=== PATIENT | female | born 1980 | race Caucasian/White ===

== ENCOUNTER 2018-01-21 17:57 | Emergency (ER) | payer OTHER ==
[~2018-01-21] VITALS: Ht 172.7 cm; Wt 56.2 kg
[2018-01-21] MEDS ORDERED: CYMBALTA30 MG PO (18:25)
[2018-01-21] MEDS ORDERED: CARAFATE 1 GM TA1 G1 PO (18:25)
[2018-01-21] MEDS ORDERED: PROTONIX 20 MG20 M1 PO (18:25)
[2018-01-21] MEDS ORDERED: SYNTHROID300 MCG PO (18:26)
[2018-01-21] MEDS ORDERED: OXTELLAR XR150 MG PO (18:26)
[2018-01-21] MEDS ORDERED: TYLENOL325 M1 PO (18:27)
[2018-01-21] MEDS ORDERED: ALEVE220 MG PO (18:27)
[2018-01-21] MEDS ORDERED: MELATONIN5 M1 PO (18:27)
[2018-01-21 18:40] LABS: ABSOLUTE NEUTROPHILS 2.3 thou/uL (1.4-8.2); BASOPHILS 0.8 % (0.0-2.0); EOSINOPHILS 0.7 % (0.0-3.0); HEMATOCRIT 40.9 % (37.0-47.0); HEMOGLOBIN 14.6 gm/dL (12.0-15.0); LYMPHOCYTES 31.9 % (24.0-44.0); MCH 31.2 pg (26.0-34.0); MCHC 35.7 g/dL (28.0-37.0); MCV 87.3 fL (80.0-100.0); MONOCYTES 8.8 % (1.0-8.0); PLATELET COUNT 235 thou/uL (150-400); POLYS 57.8 % (36.0-66.0); RBC 4.69 mil/uL (4.20-5.00); RDW 11.5 % (10.5-14.5); WBC 3.9 thou/uL (4.0-11.0)
[2018-01-21 18:48] LABS: CALCIUM 9.5 mg/dL (8.5-10.1); CREATININE 0.6 mg/dL (0.6-1.0); POTASSIUM 3.6 mmol/L (3.5-5.1)
[2018-01-21 18:52] LABS: ALBUMIN 4.5 g/dL (3.4-5.0); TOTAL BILIRUBIN 0.4 mg/dL (<0.1-1.0); TOTAL PROTEIN 7.9 g/dL (6.4-8.2)
[2018-01-21] MEDS ORDERED: TORADOL 10 MG T10 MG PO (20:15)
[2018-01-21 20:31] VITALS: BP 107/58
== END 2018-01-21 20:32 | disposition home or self-care (01) ==
LOC: ER 17:57
PROVIDERS: Student in an Organized Health Care Education/Training Program
DX: R10.13 Epigastric pain (principal); R10.11 Right upper quadrant pain; F31.9 Bipolar disorder, unspecified; Z85.07 Personal history of malignant neoplasm of pancreas; Z87.891 Personal history of nicotine dependence; Z88.5 Allergy status to narcotic agent; Z91.018 Allergy to other foods; Z90.49 Acquired absence of other specified parts of digestive tract; Z90.711 Acquired absence of uterus with remaining cervical stump; Z85.850 Personal history of malignant neoplasm of thyroid

== ENCOUNTER 2018-05-16 13:22 | Emergency (ER) | payer OTHER ==
[~2018-05-16] VITALS: Ht 172.7 cm; Wt 54.9 kg
[~2018-05-16 13:22] MED LIST: ALEVE220 MG PO; CARAFATE 1 GM TA1 G1 PO; CYMBALTA30 MG PO; MELATONIN5 M1 PO; OXTELLAR XR150 MG PO; PROTONIX 20 MG20 M1 PO; SYNTHROID300 MCG PO; TORADOL 10 MG T10 MG PO; TYLENOL325 M1 PO
[2018-05-16 13:50] LABS: ABSOLUTE NEUTROPHILS 3.3 thou/uL (1.4-8.2); BASOPHILS 0.7 % (0.0-2.0); EOSINOPHILS 0.6 % (0.0-3.0); HEMATOCRIT 43.9 % (37.0-47.0); HEMOGLOBIN 14.9 gm/dL (12.0-15.0); LYMPHOCYTES 34.7 % (24.0-44.0); MCH 29.5 pg (26.0-34.0); MCHC 33.9 g/dL (28.0-37.0); MONOCYTES 5.8 % (1.0-8.0); PLATELET COUNT 307 thou/uL (150-400); POLYS 58.2 % (36.0-66.0); RBC 5.04 mil/uL (4.20-5.00); RDW 13.1 % (10.5-14.5); WBC 5.7 thou/uL (4.0-11.0)
[2018-05-16 13:52] LABS: URINE BILIRUBIN NEGATIVE (Negative); URINE BLOOD NEGATIVE (Negative); URINE CLARITY SL CLOUDY; URINE COLOR YELLOW; URINE GLUCOSE-RANDOM* NEGATIVE (Negative); URINE KETONES TRACE (Negative); URINE LEUKOCYTES-REFLEX NEGATIVE (Negative); URINE NITRITE-REFLEX NEGATIVE (Negative); URINE PROTEIN (DIPSTICK) NEGATIVE (Negative); URINE SPECIFIC GRAVITY 1.015 (1.005-1.035); URINE UROBILINOGEN 0.2 E.U./dl (0.2-1.0)
[2018-05-16 13:59] LABS: CALCIUM 9.4 mg/dL (8.5-10.1); CREATININE 0.7 mg/dL (0.6-1.0)
[2018-05-16 14:05] LABS: ALBUMIN 4.8 g/dL (3.4-5.0); TOTAL BILIRUBIN 0.3 mg/dL (<0.1-1.0); TOTAL PROTEIN 8.1 g/dL (6.4-8.2)
[2018-05-16] MEDS ORDERED: TRILEPTAL300 MG PO (14:06)
[2018-05-16] MEDS ORDERED: AMBIEN5 MG PO (14:07)
[2018-05-16] MEDS ORDERED: BACLOFEN 10MG T10 MG PO (14:08)
[2018-05-16 14:20] LABS: PROTIME 10.2 Seconds (9.3-11.4)
[2018-05-16] MEDS ORDERED: REGLAN 10 MG TA10 MG PO (16:00)
[2018-05-16] MEDS ORDERED: TORADOL 10 MG T10 MG PO (16:00)
[2018-05-16 16:05] VITALS: BP 112/76
--- NOTE | 2018-05-16 17:28 | EKG ---
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: MIRIAM : 1980 Requested By: Mak Russell Order Number: [id number] MD: Jean Adrian Measurements Intervals [place] Rate: 87 P: 61 DC: 133 QRS: 50 QRSD: 98 T: 67 QT: 364 QTc: 438 Interpretive Statements Sinus rhythm Normal tracing No previous ECG available for comparison Electronically Signed On 05-16-2018 17:28:19 CDT by Jean Adrian [email or web address] ��������������������������������������������� <ELECTRONICALLY SIGNED> ���������������������������������������� By: Jean Adrian MD, [facility] ��������������������������������������������� 05/16/18 1728 1406 1406 Jean Adrian MD, FACC /EPI
== END 2018-05-16 16:12 | disposition home or self-care (01) ==
LOC: ER 13:22
PROVIDERS: Physician Assistant
DX: K31.84 Gastroparesis (principal); R55 Syncope and collapse; F31.9 Bipolar disorder, unspecified; Z87.891 Personal history of nicotine dependence; Z88.6 Allergy status to analgesic agent; Z91.018 Allergy to other foods; Z85.850 Personal history of malignant neoplasm of thyroid; Z90.711 Acquired absence of uterus with remaining cervical stump

== ENCOUNTER 2018-06-13 16:52 | Emergency (ER) | payer OTHER ==
[~2018-06-13] VITALS: Ht 172.7 cm; Wt 56.7 kg
[~2018-06-13 16:52] MED LIST changes: +AMBIEN5 MG PO; +BACLOFEN 10MG T10 MG PO; +REGLAN 10 MG TA10 MG PO; +TRILEPTAL300 MG PO
[2018-06-13 17:49] LABS: ABSOLUTE NEUTROPHILS 2.2 thou/uL (1.4-8.2); BASOPHILS 0.7 % (0.0-2.0); EOSINOPHILS 0.4 % (0.0-3.0); HEMOGLOBIN 12.6 gm/dL (12.0-15.0); LYMPHOCYTES 40.1 % (24.0-44.0); MCH 29.2 pg (26.0-34.0); MCHC 34.2 g/dL (28.0-37.0); MCV 85.5 fL (80.0-100.0); MONOCYTES 8.5 % (1.0-8.0); PLATELET COUNT 206 thou/uL (150-400); POLYS 50.3 % (36.0-66.0); RBC 4.33 mil/uL (4.20-5.00); RDW 12.6 % (10.5-14.5); WBC 4.3 thou/uL (4.0-11.0)
[2018-06-13 17:55] LABS: CALCIUM 8.9 mg/dL (8.5-10.1); CREATININE 0.6 mg/dL (0.6-1.0); POTASSIUM 3.7 mmol/L (3.5-5.1)
[2018-06-13 18:01] LABS: TOTAL BILIRUBIN 0.3 mg/dL (<0.1-1.0); TOTAL PROTEIN 6.5 g/dL (6.4-8.2)
[2018-06-13] MEDS ORDERED: MIRALAX17 G1 PO (18:42)
[2018-06-13] MEDS ORDERED: COLACE100 MG PO (18:42)
[2018-06-13] MEDS ORDERED: AMITRIPTYLINE H25 M2 PO (18:43)
[2018-06-13 20:44] LABS: URINE BILIRUBIN NEGATIVE (Negative); URINE BLOOD NEGATIVE (Negative); URINE CLARITY SL CLOUDY; URINE COLOR YELLOW; URINE GLUCOSE-RANDOM* NEGATIVE (Negative); URINE KETONES TRACE (Negative); URINE LEUKOCYTES-REFLEX NEGATIVE (Negative); URINE NITRITE-REFLEX NEGATIVE (Negative); URINE PROTEIN (DIPSTICK) NEGATIVE (Negative); URINE UROBILINOGEN 0.2 E.U./dl (0.2-1.0)
[2018-06-13] MEDS ORDERED: NORCO 5-325 TA1 EACH PO (21:50)
[2018-06-13 21:56] VITALS: BP 113/56
== END 2018-06-13 22:03 | disposition home or self-care (01) ==
LOC: ER 16:52
PROVIDERS: Physician Assistant
DX: K31.84 Gastroparesis (principal); Z85.850 Personal history of malignant neoplasm of thyroid; F31.9 Bipolar disorder, unspecified; Z90.49 Acquired absence of other specified parts of digestive tract; Z90.710 Acquired absence of both cervix and uterus; Z87.891 Personal history of nicotine dependence; Z88.5 Allergy status to narcotic agent; Z88.8 Allergy status to other drugs, medicaments and biological substances

== ENCOUNTER 2018-11-05 14:02 | Inpatient (IN) | payer OTHER ==
[~2018-11-05] VITALS: Ht 172.7 cm; Wt 60.3 kg
[~2018-11-05 14:02] MED LIST changes: +AMITRIPTYLINE H25 M2 PO; +COLACE100 MG PO; +MIRALAX17 G1 PO; +NORCO 5-325 TA1 EACH PO
[2018-11-05 14:07] VITALS: BP 136/87
[2018-11-05 14:40] LABS: BASOPHILS 0.2 % (0.0-2.0); EOSINOPHILS 0.4 % (0.0-3.0); HEMATOCRIT 38.6 % (37.0-47.0); HEMOGLOBIN 13.4 gm/dL (12.0-15.0); LYMPHOCYTES 35.4 % (24.0-44.0); MCH 29.5 pg (26.0-34.0); MCHC 34.5 g/dL (28.0-37.0); MCV 85.3 fL (80.0-100.0); PLATELET COUNT 243 thou/uL (150-400); RBC 4.53 mil/uL (4.20-5.00); RDW 12.9 % (10.5-14.5); WBC 5.3 thou/uL (4.0-11.0)
[2018-11-05 14:44] LABS: ANION GAP 9 mmol/L (7-16); BUN 12 mg/dL (7-18); CALCIUM 9.1 mg/dL (8.5-10.1); CHLORIDE 104 mmol/L (98-107); CO2 27 mmol/L (21-32); CREATININE 0.6 mg/dL (0.6-1.0); GLUCOSE 112 mg/dL (74-106); POTASSIUM 3.6 mmol/L (3.5-5.1); SODIUM 140 mmol/L (136-145)
[2018-11-05 14:51] LABS: ALBUMIN 4.3 g/dL (3.4-5.0); DIRECT BILIRUBIN < 0.1 mg/dL (<0.1-0.3); LIPASE 211 U/L (73-393); SGOT 11 U/L (15-37); SGPT 16 U/L (30-65); TOTAL BILIRUBIN 0.3 mg/dL (<0.1-1.0); TOTAL PROTEIN 7.3 g/dL (6.4-8.2)
[2018-11-05 16:54] VITALS: BP 132/75
[2018-11-05 17:20] LABS: AMP/METHAMP Negative (Negative); BARBITURATES Negative (Negative); BENZODIAZEPINES Negative (Negative); COCAINE Negative (Negative); METHADONE Negative (Negative); OPIATES Negative (Negative); PCP Negative (Negative)
[2018-11-05 17:21] VITALS: BP 1117/75
[2018-11-05 17:28] VITALS: BP 1117/75
[2018-11-05 17:52] VITALS: BP 108/57
[2018-11-05] MEDS ORDERED: MELATONIN5 M1 PO (18:36)
--- NOTE | 2018-11-05 18:59 | NUR ---
Assumed care of pt 0700. Pt a&ox4. C/o abdominal pain. Prn pain med administered. Pt requests medicine for anxiety. Will notify doctor. Up ad dania. Admission completed. Family at bedside. Call light within reach. Will continue to monitor.
[2018-11-05 22:12] VITALS: BP 116/71
--- NOTE | 2018-11-06 04:32 | NUR ---
PATIENT ALERT AND ORIENTED X4. AT BEDSIDE IN EARLY EVENING. NPO EXCEPT FOR MEDICATION. IVF INFUSING W/O COMPLICATION. C/O PAIN TO ABDOMINAL AREA AND MEDICATED X3 AT TIME OF NOTE WITH FENTANYL. ALSO MEDICATED FOR NAUSEA X1 WITH NO EMESIS. PATIENT REQUESTED AMBIEN FOR SLEEP AND WAS GIVEN WITH MODERATE RESULTS. PATIENT REQUESTED SOMETHING FOR BREAKTHROUGH PAIN BETWEEN FENTANYL EVERY TWO HOURS, NEW ORDER FROM DECORATING KILN OPERATOR KEELY GIVEN. RESTING QUIETLY, WILL MONITOR.
[2018-11-06 08:10] VITALS: BP 103/53
[2018-11-06 16:22] VITALS: BP 103/63
[2018-11-06 19:38] VITALS: BP 126/79
[2018-11-07 05:48] VITALS: BP 103/59
[2018-11-07 08:18] VITALS: BP 100/66
[2018-11-07 12:40] LABS: CALCIUM 8.9 mg/dL (8.5-10.1); CREATININE 0.6 mg/dL (0.6-1.0); TOTAL BILIRUBIN 0.4 mg/dL (<0.1-1.0); TOTAL PROTEIN 6.9 g/dL (6.4-8.2)
--- NOTE | 2018-11-07 15:49 | NUR ---
INITIAL ASSESSMENT: Pt evaluated for d/c planning needs. Reviewed chart and spoke with nurse and pt. Pt is alert and oriented. Pt lives in house with spouse and 2 children--ages 10 and 13. Pt was independent with ADL's and uses no DME. Pt has not had home health in the past. Pt said she is disabled from her cancer and does not work outside the home. Pt plans on returning home on d/c from hospital. Will remain available to assist as needed.
[2018-11-07 16:17] VITALS: BP 126/78
--- NOTE | 2018-11-07 18:22 | NUR ---
Assumed care of pt at 0700. Pt up ad dania. C/o abd pain. Prn pain meds administered. IVF infusing. Abd ultrasound ordered. Pt will undergo EGD tomorrow 11/08. Pt will be NPO after midnight. Call light within reach. Will continue to monitor.
[2018-11-08 07:24] VITALS: BP 100/62
--- NOTE | 2018-11-08 07:24 | NUR ---
PATIENT ALERT AND ORIENTED X4. C/O PAIN [id number]. UP AD CHANELLE. SLEPT LITTLE THIS SHIFT. NPO FOR A PROCEDURE TODAY.
[2018-11-08 16:15] VITALS: BP 111/76
[2018-11-08 18:29] LABS: URINE BILIRUBIN NEGATIVE (Negative); URINE BLOOD NEGATIVE (Negative); URINE CLARITY CLEAR; URINE COLOR YELLOW; URINE GLUCOSE-RANDOM* NEGATIVE (Negative); URINE KETONES NEGATIVE (Negative); URINE LEUKOCYTES-REFLEX NEGATIVE (Negative); URINE NITRITE-REFLEX NEGATIVE (Negative); URINE PROTEIN (DIPSTICK) NEGATIVE (Negative); URINE SPECIFIC GRAVITY <= 1.005 (1.005-1.035); URINE UROBILINOGEN 0.2 E.U./dl (0.2-1.0)
[2018-11-08 19:22] VITALS: BP 106/61
--- NOTE | 2018-11-08 20:14 | NUR ---
PT ALERT AND ORIENTED TIMES FOUR, VSS, IVF INFUSING PER ORDER. PT C/O ABD PAIN PRN GIVEN WITH SOME RELEIF (SEE MAR) PT TOLERATES MEALS. PT UP AB CHANELLE TO RESTROOM WITH STEADY GAIT. WILL CONTINUE TO MONITOR.
--- NOTE | 2018-11-09 05:09 | NUR ---
ASSUMED CARE OF PT @1900 PT A&OX4 WITH C/O PAIN IN RUQ. PAIN MEDS GIVEN FOR MANAGEMENT NO RELIF SEE EMAR. IV INTACT IN RT UPPER ARM AND FLUIDS INFUSING. PT UP AD CHANELLE TO THE BATHROOM. WILL CONTINUE WITH POC TILL EOS
[2018-11-09 05:26] VITALS: BP 136/78
[2018-11-09 07:00] VITALS: BP 108/65
--- NOTE | 2018-11-09 10:57 | P ---
[facility] [place] [address] PROCEDURE REPORT Name: LAUREN GRIFFITH Room #: 426-P [facility] IN M.R.#: [id number] Admission: 11/05/18 Attend Phys: Kathy Greer Discharge: Date of : 82 Report #: [id number] THIS REPORT FOR: //name// CC: FAM unknown Kathy MEJIA DATE OF SERVICE: 11/08/2018 PROCEDURE: Esophagogastroduodenoscopy with biopsies. PATIENT OF: Dr. Torsten Mejia and Dr. Kathy Greer. INDICATION FOR PROCEDURE: This patient has nausea and vomiting and right upper quadrant pain. 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 THE PATIENT IS ALLERGIC TO REGLAN. Informed consent for this procedure was obtained prior to the administration of any medication. The risks of the procedure, which include bleeding, perforation, infection, complications of sedation and the possibility I could miss something have been explained to the patient and she has indicated her consent by signing. DESCRIPTION OF PROCEDURE: Propofol was slowly titrated before and during this procedure for patient comfort by the anesthesia service. The Olympus upper videoscope was introduced through the upper esophageal sphincter and advanced under direct visualization to the third portion of the duodenum. Findings are noted on withdrawal of the scope. The visualized portion of the third portion of the duodenum and the second portion of the duodenum appeared normal. The duodenal bulb appears normal as well. Pylorus, normal mucosa. Antrum, there is prepyloric antral erythema noted. Biopsies were obtained x 2 from the antrum in the distal body of the stomach for histopathology to evaluate for H. pylori infection primarily. Body, normal mucosa. Cardia and fundus, normal mucosa. Retroflex view did not reveal any abnormalities. There is no retained food in the stomach. The scope was withdrawn into the esophagus. The Z-line is appropriately located at the top of the gastric folds and appears normal. The esophageal mucosa appeared normal throughout its entirety. The scope was withdrawn. The patient went to the recovery area in stable condition. She tolerated the procedure well. IMPRESSION: 1. Mild distal erythema of the stomach. Other than that, normal [address] [address] PROCEDURE REPORT Name: LAUREN GRIFFITH Room #: 426-P [facility] IN ..#: [id number] Admission: 11/05/18 Attend Phys: Kathy Greer Discharge: Date of : 82 Report #: [id number] esophagogastroduodenoscopy to descending duodenum. RECOMMENDATIONS: To await the biopsy results. Because of the suggestion of possible vagus nerve damage during the patient's thyroidectomy, it is possible that she may have a gastroparesis situation in that instance the use of a prokinetic agents such as Reglan or erythromycin would be warranted. I need the records from [facility] to see if this gastric emptying study was done to confirm this diagnosis. If not, I would recommend that she have that test done as a next test. I do not think that we can give her Reglan because of her allergies and I will need to check to see if erythromycin reaction with any of her remaining medications to make sure there does not cross drug reaction, but I think erythromycin may be her drug of choice for gastroparesis. Thank you very much once again for allowing me to participate in her care, Dr. Mejia and Dr. Greer. <ELECTRONICALLY SIGNED> By: Deja Thomas DO 11/09/18 1057 1350 0127 Deja Thomas DO /nt
--- NOTE | 2018-11-09 16:36 | NUR ---
Assumed care of pt at 0700. Pt a&o x4. up ad dania. Pain controlled with prn pain meds. IV pain med switched to PO. ordered labs. Will notify with lab results. If labs normal, pt will discharge this pm.
[2018-11-09 16:50] VITALS: BP 98/55
--- NOTE | 2018-11-09 17:06 | PATH ---
[facility] [address] [place] [address] PATHOLOGY RPT PROCEDURE Name: LAUREN MCCOY Room #: 426-P ADM IN M.R.#: [id number] Admission: 11/05/18 Date of : 82 Discharge: Report #: [id number] Path Case #: [id number] [facility] Accession Number: [id number] . 01 Material submitted: . stomach - BX STOMACH . 01 Clinical history: . Pre-OP DX: RUQ abdominal pain Post-OP DX: Gastritis . 02 Diagnosis: Gastric mucosa, stomach rule out H. pylori, endoscopic biopsy: - Mild chronic inflammation. - Negative for intestinal metaplasia or atrophy. - Negative for Helicobacter pylori (properly-controlled immunohistochemical stain performed). . (IUV:mml; 11/09/2018) QLM/11/09/2018 . 02 Electronically signed: . Adriana Liu MD, Pathologist NPI- [id number] . 01 Gross description: . Received in formalin labeled "Lauren Mccoy, BX stomach, rule out H. pylori," are 2 segments of lisa soft tissue measuring 0.9 x 0.2 x 0.2 cm in aggregate dimensions and ranging from 0.4 to 0.5 cm in maximum dimension. The specimen is submitted entirely in cassette A1. (TSD; 11/08/2018) TOB/TOB . 02 Pathologist provided ICD-10: K29.50 . 02 CPT . 319547, [id number] Specimen Comment: A courtesy copy of this report has been sent to Specimen Comment: [phone], , . Specimen Comment: Report sent to ,DR EVERETT / DR SEBASTIAN Performed at: [address] [id number] MD Fantasma Espino MD Phone: [phone] Performed at: [address] [address] PATHOLOGY RPT PROCEDURE Name: LAUREN MCCOY Room #: 426-P ADM IN M.R.#: [id number] Admission: 11/05/18 Date of : 82 Discharge: Report #: [id number] Path Case #: [id number] [address] [place] [address] [place] [id number] MD Adriana Liu MD Phone: [phone]
[2018-11-09 17:42] LABS: BASOPHILS 0.3 % (0.0-2.0); EOSINOPHILS 1.1 % (0.0-3.0); HEMATOCRIT 39.4 % (37.0-47.0); HEMOGLOBIN 13.3 gm/dL (12.0-15.0); LYMPHOCYTES 38.8 % (24.0-44.0); MCH 29.1 pg (26.0-34.0); MCHC 33.7 g/dL (28.0-37.0); MCV 86.2 fL (80.0-100.0); MONOCYTES 8.8 % (1.0-8.0); PLATELET COUNT 228 thou/uL (150-400); RBC 4.58 mil/uL (4.20-5.00); RDW 12.5 % (10.5-14.5)
[2018-11-09 17:52] LABS: CALCIUM 8.8 mg/dL (8.5-10.1); CREATININE 0.6 mg/dL (0.6-1.0); POTASSIUM 4.2 mmol/L (3.5-5.1)
[2018-11-09 18:24] LABS: TSH 0.012 uIU/mL (0.358-3.740)
[2018-11-09] MEDS ORDERED: SYNTHROID200 MCG PO (18:38)
[2018-11-09 19:21] VITALS: BP 98/55
== END 2018-11-09 19:42 | disposition home or self-care (01) | DRG 392 ==
LOC: ER 14:02 → EROBS 16:20 → 4E 16:20
PROVIDERS: Emergency Medicine; Internal Medicine; Internal Medicine Gastroenterology; ADMIT Hospitalist
PROC: 0DB78ZX Excision of Stomach, Pylorus, Via Natural or Artificial Opening Endoscopic, Diagnostic (ICD-10-PCS; principal; 2018-11-08)
DX: K29.70 Gastritis, unspecified, without bleeding (principal); K31.84 Gastroparesis; F31.9 Bipolar disorder, unspecified; E03.9 Hypothyroidism, unspecified; K21.9 Gastro-esophageal reflux disease without esophagitis; R10.9 Unspecified abdominal pain; G89.29 Other chronic pain; E05.90 Thyrotoxicosis, unspecified without thyrotoxic crisis or storm; Z90.49 Acquired absence of other specified parts of digestive tract; Z87.891 Personal history of nicotine dependence; Z90.711 Acquired absence of uterus with remaining cervical stump; Z88.6 Allergy status to analgesic agent; Z85.850 Personal history of malignant neoplasm of thyroid; Z79.899 Other long term (current) drug therapy
CPT/HCPCS: 10084; 62110; 62900; 70005

== ENCOUNTER 2018-11-23 14:03 | Emergency (ER) | payer OTHER ==
[~2018-11-23] VITALS: Ht 172.7 cm; Wt 59.0 kg
[~2018-11-23 14:03] MED LIST changes: +SYNTHROID200 MCG PO
[2018-11-23 14:25] LABS: URINE BILIRUBIN NEGATIVE (Negative); URINE BLOOD NEGATIVE (Negative); URINE CLARITY CLEAR; URINE COLOR YELLOW; URINE GLUCOSE-RANDOM* NEGATIVE (Negative); URINE KETONES NEGATIVE (Negative); URINE LEUKOCYTES TRACE (Negative); URINE NITRITE NEGATIVE (Negative); URINE PROTEIN (DIPSTICK) NEGATIVE (Negative); URINE SPECIFIC GRAVITY <= 1.005 (1.005-1.035); URINE UROBILINOGEN 0.2 E.U./dl (0.2-1.0)
[2018-11-23 14:37] LABS: ABSOLUTE NEUTROPHILS 3.7 thou/uL (1.4-8.2); BASOPHILS 0.2 % (0.0-2.0); EOSINOPHILS 0.3 % (0.0-3.0); HEMATOCRIT 39.9 % (37.0-47.0); HEMOGLOBIN 13.4 gm/dL (12.0-15.0); MCH 29.2 pg (26.0-34.0); MCHC 33.6 g/dL (28.0-37.0); MONOCYTES 7.7 % (1.0-8.0); PLATELET COUNT 254 thou/uL (150-400); POLYS 62.8 % (36.0-66.0); RBC 4.58 mil/uL (4.20-5.00); RDW 12.5 % (10.5-14.5); WBC 5.9 thou/uL (4.0-11.0)
[2018-11-23 14:42] LABS: CALCIUM 9.2 mg/dL (8.5-10.1); CREATININE 0.6 mg/dL (0.6-1.0); POTASSIUM 3.8 mmol/L (3.5-5.1)
[2018-11-23 14:48] LABS: ALBUMIN 4.6 g/dL (3.4-5.0); DIRECT BILIRUBIN 0.1 mg/dL (<0.1-0.3); TOTAL BILIRUBIN 0.2 mg/dL (<0.1-1.0); TOTAL PROTEIN 7.6 g/dL (6.4-8.2)
[2018-11-23 17:51] VITALS: BP 103/58
== END 2018-11-23 17:52 | disposition home or self-care (01) ==
LOC: ER 14:03
PROVIDERS: Nurse Practitioner
DX: K31.84 Gastroparesis (principal); F31.9 Bipolar disorder, unspecified; Z90.711 Acquired absence of uterus with remaining cervical stump; Z90.49 Acquired absence of other specified parts of digestive tract; Z85.850 Personal history of malignant neoplasm of thyroid; Z86.018 Personal history of other benign neoplasm; Z88.5 Allergy status to narcotic agent; Z91.018 Allergy to other foods; Z87.891 Personal history of nicotine dependence; Z88.8 Allergy status to other drugs, medicaments and biological substances

== ENCOUNTER 2019-03-03 16:24 | Emergency (ER) | payer OTHER ==
[~2019-03-03] VITALS: Ht 172.7 cm; Wt 60.3 kg
[2019-03-03 17:36] LABS: ABSOLUTE NEUTROPHILS 2.5 thou/uL (1.4-8.2); BASOPHILS 0.2 % (0.0-2.0); EOSINOPHILS 1.1 % (0.0-3.0); HEMATOCRIT 38.7 % (37.0-47.0); HEMOGLOBIN 12.8 gm/dL (12.0-15.0); LYMPHOCYTES 37.4 % (24.0-44.0); MCH 27.3 pg (26.0-34.0); MCHC 33.1 g/dL (28.0-37.0); MCV 82.4 fL (80.0-100.0); MONOCYTES 11.7 % (1.0-8.0); PLATELET COUNT 203 thou/uL (150-400); POLYS 49.6 % (36.0-66.0); RDW 13.5 % (10.5-14.5)
[2019-03-03 17:44] LABS: ANION GAP 12 mmol/L (7-16); BUN 8 mg/dL (7-18); CALCIUM 9.2 mg/dL (8.5-10.1); CHLORIDE 104 mmol/L (98-107); CO2 23 mmol/L (21-32); CREATININE 0.6 mg/dL (0.6-1.0); GLUCOSE 110 mg/dL (74-106); POTASSIUM 4.1 mmol/L (3.5-5.1); SODIUM 139 mmol/L (136-145)
[2019-03-03] MEDS ORDERED: SYNTHROID100 MC1 PO (17:48)
[2019-03-03] MEDS ORDERED: TORADOL 10 MG T10 MG PO (17:50)
[2019-03-03] MEDS ORDERED: NORCO 5-325 TA1 EAC1 PO (17:50)
[2019-03-03 17:56] LABS: ALBUMIN 4.1 g/dL (3.4-5.0); SGOT 11 U/L (15-37); SGPT 18 U/L (30-65); TOTAL BILIRUBIN 0.2 mg/dL (<0.1-1.0); TOTAL PROTEIN 7.1 g/dL (6.4-8.2); TROPONIN-I <0.06 ng/mL (<0.06)
[2019-03-04 00:23] VITALS: BP 122/78
--- NOTE | 2019-03-04 16:19 | EKG ---
[place] [address] [facility] [place] [address] ELECTROCARDIOGRAM REPORT Name: LAUREN GRIFFITH Room #: [facility]#: [id number] Admission: 03/03/19 Attend Phys: Discharge: 03/04/19 Date of : 82 Report #: [id number] THIS REPORT FOR: //name// [facility] ED Test Date: 2019-03-03 Test Time: 17:08:34 Pat Name: LAUREN GRIFFITH Department: Room: Gender: F Crisis Nurse: NATHAN : 1980 Requested By: Mak Russell Order Number: [id number] MD: Brian Louie Measurements Intervals [place] Rate: 107 P: 75 [place]: 128 QRS: 67 QRSD: 80 T: 33 QT: 292 QTc: 390 Interpretive Statements Sinus tachycardia Biatrial enlargement Nonspecific ST-T wave changes Baseline wander in lead(s) V1 Compared to ECG 05/16/2018 14:06:17 No significant change Electronically Signed On 03-04-2019 16:18:40 CAR FERRY CAPTAIN by Brian Louie [email or web address] <ELECTRONICALLY SIGNED> By: Brian Louie MD 03/04/19 1618 170 07 Brian Louie MD /EPI
== END 2019-03-04 00:26 | disposition short-term general hospital (02) ==
LOC: ER 16:24
PROVIDERS: Physician Assistant
DX: D36.10 Benign neoplasm of peripheral nerves and autonomic nervous system, unspecified (principal); R07.81 Pleurodynia; F31.9 Bipolar disorder, unspecified; Z85.850 Personal history of malignant neoplasm of thyroid; Z90.711 Acquired absence of uterus with remaining cervical stump; Z87.891 Personal history of nicotine dependence; Z91.018 Allergy to other foods; Z88.6 Allergy status to analgesic agent; Z88.8 Allergy status to other drugs, medicaments and biological substances

== ENCOUNTER 2019-05-20 10:44 | Emergency (ER) | payer OTHER ==
[~2019-05-20] VITALS: Ht 170.2 cm; Wt 63.5 kg
[2019-05-20 10:44] VITALS: BP 120/80
[~2019-05-20 10:44] MED LIST changes: +NORCO 5-325 TA1 EAC1 PO; +SYNTHROID100 MC1 PO
[2019-05-20] MEDS ORDERED: NORCO 5-325 TA1 EAC1 PO (12:18)
[2019-05-20] MEDS ORDERED: LIDOCAINE1 EACH TRANSDERM (12:18)
[2019-05-20] MEDS ORDERED: NABUMETONE 750750 M1 PO (12:18)
[2019-05-20] MEDS ORDERED: NORFLEX100 MG PO (12:30)
== END 2019-05-20 13:20 | disposition home or self-care (01) ==
LOC: ER 10:44
DX: S30.0XXA Contusion of lower back and pelvis, initial encounter (principal); S39.012A Strain of muscle, fascia and tendon of lower back, initial encounter; R07.89 Other chest pain; Z90.710 Acquired absence of both cervix and uterus; Z90.49 Acquired absence of other specified parts of digestive tract; Z98.890 Other specified postprocedural states; Z85.850 Personal history of malignant neoplasm of thyroid; Z85.118 Personal history of other malignant neoplasm of bronchus and lung; Z79.899 Other long term (current) drug therapy; Z88.5 Allergy status to narcotic agent; Z91.018 Allergy to other foods; Z87.891 Personal history of nicotine dependence; W10.8XXA Fall (on) (from) other stairs and steps, initial encounter; Y93.89 Activity, other specified; Y92.89 Other specified places as the place of occurrence of the external cause; Y99.8 Other external cause status

== ENCOUNTER 2019-05-29 14:11 | Emergency (ER) | payer OTHER ==
[~2019-05-29] VITALS: Ht 170.2 cm; Wt 63.5 kg
[2019-05-29 14:11] VITALS: BP 125/90
[~2019-05-29 14:11] MED LIST changes: +LIDOCAINE1 EACH TRANSDERM; +NABUMETONE 750750 M1 PO; +NORFLEX100 MG PO
[2019-05-29] MEDS ORDERED: SKELAXIN 800 M800 M1 PO (15:59)
[2019-05-29] MEDS ORDERED: NABUMETONE 750750 M1 PO (15:59)
== END 2019-05-29 16:09 | disposition home or self-care (01) ==
LOC: ER 14:11
DX: S30.0XXA Contusion of lower back and pelvis, initial encounter (principal); Z87.891 Personal history of nicotine dependence; Z88.5 Allergy status to narcotic agent; Z88.8 Allergy status to other drugs, medicaments and biological substances; Z85.850 Personal history of malignant neoplasm of thyroid; W01.0XXA Fall on same level from slipping, tripping and stumbling without subsequent striking against object, initial encounter; Y93.89 Activity, other specified; Y92.89 Other specified places as the place of occurrence of the external cause; Y99.9 Unspecified external cause status

== ENCOUNTER 2019-10-07 17:48 | Emergency (ER) | payer OTHER ==
[~2019-10-07] VITALS: Ht 172.7 cm; Wt 61.1 kg
[~2019-10-07 17:48] MED LIST changes: +SKELAXIN 800 M800 M1 PO
[2019-10-07] MEDS ORDERED: CYMBALTA60 MG PO (18:26)
[2019-10-07] MEDS ORDERED: AMBIEN 5 MG TABL5 M1 PO (18:26)
[2019-10-07] MEDS ORDERED: HYDROXYZINE HCL25 M2 PO (18:27)
[2019-10-07 18:52] LABS: URINE BILIRUBIN NEGATIVE (Negative); URINE BLOOD 3+ (Negative); URINE CLARITY CLEAR; URINE COLOR YELLOW; URINE GLUCOSE-RANDOM* NEGATIVE (Negative); URINE KETONES NEGATIVE (Negative); URINE LEUKOCYTES-REFLEX NEGATIVE (Negative); URINE NITRITE-REFLEX NEGATIVE (Negative); URINE PROTEIN (DIPSTICK) TRACE (Negative); URINE UROBILINOGEN 0.2 E.U./dl (0.2-1.0)
[2019-10-07 18:54] LABS: SQUAMOUS >10 Many /LPF (0-3)
[2019-10-07 18:55] LABS: BACTERIA-REFLEX None Seen /HPF (None Seen); CASTS None Seen /LPF (None Seen); CRYSTALS None Seen /LPF (None Seen); URINE RBC >20 Many /HPF (0-2); URINE WBC-REFLEX None Seen /HPF (0-5)
[2019-10-07 19:21] LABS: ABSOLUTE NEUTROPHILS 3.8 thou/uL (1.4-8.2); BASOPHILS 0.4 % (0.0-2.0); EOSINOPHILS 0.6 % (0.0-3.0); HEMATOCRIT 37.6 % (37.0-47.0); HEMOGLOBIN 12.9 gm/dL (12.0-15.0); LYMPHOCYTES 30.9 % (24.0-44.0); MCH 29.7 pg (26.0-34.0); MCHC 34.2 g/dL (28.0-37.0); MCV 86.7 fL (80.0-100.0); PLATELET COUNT 265 thou/uL (150-400); POLYS 62.1 % (36.0-66.0); RBC 4.34 mil/uL (4.20-5.00); RDW 12.8 % (10.5-14.5); WBC 6.1 thou/uL (4.0-11.0)
[2019-10-07 19:26] LABS: CALCIUM 8.3 mg/dL (8.5-10.1); CREATININE 0.8 mg/dL (0.6-1.0); POTASSIUM 3.1 mmol/L (3.5-5.1)
[2019-10-07 19:32] LABS: ALBUMIN 4.3 g/dL (3.4-5.0); TOTAL BILIRUBIN 0.4 mg/dL (0.2-1.0); TOTAL PROTEIN 6.9 g/dL (6.4-8.2)
[2019-10-07 21:05] VITALS: BP 134/79
== END 2019-10-07 21:06 | disposition home or self-care (01) ==
LOC: ER 17:48
PROVIDERS: Emergency Medicine
DX: M54.6 Pain in thoracic spine (principal); Z90.710 Acquired absence of both cervix and uterus; Z79.899 Other long term (current) drug therapy; Z88.5 Allergy status to narcotic agent; Z91.018 Allergy to other foods; Z88.8 Allergy status to other drugs, medicaments and biological substances; Z87.891 Personal history of nicotine dependence

== ENCOUNTER 2019-11-14 10:51 | Emergency (ER) | payer OTHER ==
[~2019-11-14] VITALS: Ht 172.7 cm; Wt 59.9 kg
[~2019-11-14 10:51] MED LIST changes: +AMBIEN 5 MG TABL5 M1 PO; +CYMBALTA60 MG PO; +HYDROXYZINE HCL25 M2 PO
[2019-11-14 11:34] LABS: ABSOLUTE NEUTROPHILS 4.5 thou/uL (1.4-8.2); BASOPHILS 0.3 % (0.0-2.0); EOSINOPHILS 0.6 % (0.0-3.0); HEMATOCRIT 42.3 % (37.0-47.0); HEMOGLOBIN 14.4 gm/dL (12.0-15.0); LYMPHOCYTES 31.5 % (24.0-44.0); MCH 29.9 pg (26.0-34.0); MCHC 34.1 g/dL (28.0-37.0); MCV 87.5 fL (80.0-100.0); MONOCYTES 6.5 % (1.0-8.0); PLATELET COUNT 280 thou/uL (150-400); POLYS 61.1 % (36.0-66.0); RBC 4.83 mil/uL (4.20-5.00); RDW 12.8 % (10.5-14.5); WBC 7.3 thou/uL (4.0-11.0)
[2019-11-14 11:38] LABS: CALCIUM 8.6 mg/dL (8.5-10.1); CREATININE 0.5 mg/dL (0.6-1.0); POTASSIUM 3.9 mmol/L (3.5-5.1)
[2019-11-14 11:44] LABS: ALBUMIN 4.4 g/dL (3.4-5.0); TOTAL BILIRUBIN 0.4 mg/dL (0.2-1.0); TOTAL PROTEIN 7.6 g/dL (6.4-8.2)
[2019-11-14 11:45] LABS: URINE BILIRUBIN NEGATIVE (Negative); URINE BLOOD NEGATIVE (Negative); URINE CLARITY CLEAR; URINE COLOR YELLOW; URINE GLUCOSE-RANDOM* NEGATIVE (Negative); URINE KETONES NEGATIVE (Negative); URINE LEUKOCYTES-REFLEX NEGATIVE (Negative); URINE NITRITE-REFLEX NEGATIVE (Negative); URINE PROTEIN (DIPSTICK) NEGATIVE (Negative); URINE SPECIFIC GRAVITY <= 1.005 (1.005-1.035); URINE UROBILINOGEN 0.2 E.U./dl (0.2-1.0)
[2019-11-14 13:44] VITALS: BP 105/51
== END 2019-11-14 13:44 | disposition home or self-care (01) ==
LOC: ER 10:51
PROVIDERS: Nurse Practitioner Family
DX: R10.13 Epigastric pain (principal); R07.9 Chest pain, unspecified; F31.9 Bipolar disorder, unspecified; Z90.49 Acquired absence of other specified parts of digestive tract; Z90.711 Acquired absence of uterus with remaining cervical stump; Z85.850 Personal history of malignant neoplasm of thyroid; Z79.899 Other long term (current) drug therapy; Z88.5 Allergy status to narcotic agent; Z88.8 Allergy status to other drugs, medicaments and biological substances; Z91.018 Allergy to other foods; Z87.891 Personal history of nicotine dependence

== ENCOUNTER 2020-01-21 04:42 | Emergency (ER) | payer OTHER ==
[~2020-01-21] VITALS: Ht 167.6 cm; Wt 61.2 kg
[2020-01-21] MEDS ORDERED: AMITIZA 24 MCG24 MC1 PO (05:03)
[2020-01-21] MEDS ORDERED: DRIZALMA SPRINK60 MG PO (05:03)
[2020-01-21 05:24] LABS: ABSOLUTE NEUTROPHILS 3.7 thou/uL (1.4-8.2); BASOPHILS 0.6 % (0.0-2.0); EOSINOPHILS 1.1 % (0.0-3.0); HEMATOCRIT 36.8 % (37.0-47.0); HEMOGLOBIN 12.5 gm/dL (12.0-15.0); LYMPHOCYTES 35.6 % (24.0-44.0); MCH 29.5 pg (26.0-34.0); MCHC 33.8 g/dL (28.0-37.0); MCV 87.1 fL (80.0-100.0); MONOCYTES 7.5 % (1.0-8.0); PLATELET COUNT 264 thou/uL (150-400); POLYS 55.2 % (36.0-66.0); RBC 4.23 mil/uL (4.20-5.00); RDW 12.3 % (10.5-14.5); WBC 6.6 thou/uL (4.0-11.0)
[2020-01-21 05:25] LABS: CALCIUM 8.5 mg/dL (8.5-10.1); CREATININE 0.6 mg/dL (0.6-1.0); POTASSIUM 3.7 mmol/L (3.5-5.1)
[2020-01-21 06:38] VITALS: BP 120/65
--- NOTE | 2020-01-21 08:31 | EKG ---
[facility] [place] [address] ELECTROCARDIOGRAM REPORT Name: LAUREN GRIFFITH Room #: [facility]#: [id number] Admission: 01/21/20 Attend Phys: Discharge: 01/21/20 Date of : 82 Report #: [id number] THIS REPORT FOR: cc: FAM - Family physician unknown FAM - Family physician unknown Jean Adrian MD [facility] ~ THIS REPORT FOR: //name// [facility] ED Test Date: 2020-01-21 Test Time: 04:49:26 Pat Name: LAUREN GRIFFITH Department: Room: Gender: F Piercer Operator: [facility] : 1980 Requested By: Iris Moreau Order Number: [id number] MD: Jean Adrian Measurements Intervals [place] Rate: 114 P: 68 DE: 160 QRS: 41 QRSD: 77 T: 48 QT: 318 QTc: 438 Interpretive Statements Sinus tachycardia Otherwise no significant abnormality Compared to ECG 03/03/2019 17:08:34 No significant changes Electronically Signed On 01-21-2020 8:31:37 SITE SAFETY MANAGER by Jean Adrian [email or web address] <ELECTRONICALLY SIGNED> By: Jean Adrian MD, FAC 01/21/20 0831 0449 0449 Jean Adrian MD, [facility] /EPI
== END 2020-01-21 06:40 | disposition home or self-care (01) ==
LOC: ER 04:42
PROVIDERS: Emergency Medicine
DX: G89.29 Other chronic pain (principal); M54.9 Dorsalgia, unspecified; R07.89 Other chest pain; Z90.710 Acquired absence of both cervix and uterus; Z79.899 Other long term (current) drug therapy; Z87.891 Personal history of nicotine dependence; Z88.2 Allergy status to sulfonamides; Z91.018 Allergy to other foods; Z88.8 Allergy status to other drugs, medicaments and biological substances

== ENCOUNTER 2020-03-31 12:40 | Emergency (ER) | payer OTHER ==
[~2020-03-31] VITALS: Ht 172.7 cm; Wt 58.1 kg
[~2020-03-31 12:40] MED LIST changes: +AMITIZA 24 MCG24 MC1 PO; +DRIZALMA SPRINK60 MG PO
[2020-03-31 13:27] LABS: URINE BILIRUBIN NEGATIVE (Negative); URINE BLOOD 3+ (Negative); URINE CLARITY CLEAR; URINE COLOR YELLOW; URINE GLUCOSE-RANDOM* NEGATIVE (Negative); URINE KETONES NEGATIVE (Negative); URINE LEUKOCYTES-REFLEX NEGATIVE (Negative); URINE NITRITE-REFLEX NEGATIVE (Negative); URINE PROTEIN (DIPSTICK) NEGATIVE (Negative); URINE SPECIFIC GRAVITY 1.015 (1.005-1.035); URINE UROBILINOGEN 0.2 E.U./dl (0.2-1.0)
[2020-03-31 14:07] LABS: CASTS None Seen /LPF (None Seen); SQUAMOUS 4-10 Moderate /LPF (0-3)
[2020-03-31 14:08] LABS: BACTERIA-REFLEX 1-9 Few /HPF (None Seen); CRYSTALS None Seen /LPF (None Seen); URINE RBC >20 Many /HPF (0-2); URINE WBC-REFLEX 0-5 Rare /HPF (0-5)
[2020-03-31 14:26] LABS: ABSOLUTE NEUTROPHILS 6.1 thou/uL (1.4-8.2); BASOPHILS 0.6 % (0.0-2.0); EOSINOPHILS 0.4 % (0.0-3.0); HEMATOCRIT 44.4 % (37.0-47.0); HEMOGLOBIN 14.7 gm/dL (12.0-15.0); LYMPHOCYTES 24.5 % (24.0-44.0); MCH 28.9 pg (26.0-34.0); MCV 87.4 fL (80.0-100.0); MONOCYTES 6.7 % (1.0-8.0); PLATELET COUNT 296 thou/uL (150-400); POLYS 67.8 % (36.0-66.0); RBC 5.08 mil/uL (4.20-5.00); RDW 13.1 % (10.5-14.5); WBC 8.9 thou/uL (4.0-11.0)
[2020-03-31 14:28] LABS: ANION GAP 12 mmol/L (7-16); BUN 11 mg/dL (7-18); CALCIUM 8.9 mg/dL (8.5-10.1); CHLORIDE 101 mmol/L (98-107); CO2 24 mmol/L (21-32); CREATININE 0.6 mg/dL (0.6-1.0); GLUCOSE 112 mg/dL (74-106); SODIUM 137 mmol/L (136-145)
[2020-03-31 14:34] LABS: ALBUMIN 4.7 g/dL (3.4-5.0); DIRECT BILIRUBIN < 0.1 mg/dL (<0.1-0.2); LIPASE 191 U/L (73-393); SGOT 22 U/L (15-37); SGPT 25 U/L (14-59); TOTAL BILIRUBIN 0.5 mg/dL (0.2-1.0); TOTAL PROTEIN 7.6 g/dL (6.4-8.2)
[2020-03-31 15:52] VITALS: BP 123/86
== END 2020-03-31 15:52 | disposition home or self-care (01) ==
LOC: ER 12:40
PROVIDERS: Emergency Medicine
DX: R10.10 Upper abdominal pain, unspecified (principal); F41.9 Anxiety disorder, unspecified; R19.7 Diarrhea, unspecified; F11.10 Opioid abuse, uncomplicated; Z87.891 Personal history of nicotine dependence; Z88.5 Allergy status to narcotic agent; Z88.8 Allergy status to other drugs, medicaments and biological substances; Z79.899 Other long term (current) drug therapy; Z85.850 Personal history of malignant neoplasm of thyroid